=== PATIENT | male | born 2005 | race Caucasian/White ===

== ENCOUNTER 2024-09-18 15:30 | Emergency (ER) | payer BC, SELFPAY ==
[2024-09-18 15:31] VITALS: BP 130/80
--- NOTE | 2024-09-18 15:51 | ED.GENMED ---
History of Present Illness
General
Chief Complaint: Crisis Evaluation
Source: patient and family
Exam Limitations: none
Time Seen by Provider: 09/18/24 15:37
Nursing documentation reviewed up to this point in time: agreed with
History of Present Illness
History of Present Illness:
19-year-old male history of depression anxiety on Lexapro presents for evaluation by crisis 2 nights ago he felt very anxious, thought about cutting himself, no alcohol no drug ingestion no overdose, went to work the next day told his boss that he
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
Past History
Past History
ED Past Medical History: Psychiatric
Social History
Tobacco: Non-smoker
Alcohol: Occasional
Drug: None
Personal: Single
Living: with family
Employment: Employed
Phy Exam
Physical Exam
Physical Exam:
Physical Exam
General: no apparent distress, not acutely ill
Neck: No jaundice
Heart: s1/s2 regular rate and rhythm, no murmur. equal radial pulses.
Lungs: no acute respiratory distress. clear bilaterally
Neuro: alert and oriented. no focal neurological deficits
Skin: no rash
Psychiatric: well kept. interactive and cooperativeNo SI no HI no hallucinations clear thought process
Extremities: no edema.
Course
Orders/Labs/Results
Orders:
Orders
09/18/24 15:35
1:1 Observation - Suicide/ Violent Behavior As Directed
Crisis Consult Urgent
Reason for Consult: SI
Vital Signs
Initial and Last Documented VS:
Initial Vital Signs
Temp Pulse Resp BP Pulse Ox
98.1 F 81 18 130/80 98
09/18/24 15:31 09/18/24 15:31 09/18/24 15:31 09/18/24 15:31 09/18/24 15:31
Last Documented Vital Signs
Temp Pulse Resp BP Pulse Ox
98.1 F 81 18 130/80 98
09/18/24 15:31 09/18/24 15:31 09/18/24 15:31 09/18/24 15:31 09/18/24 15:31
MDM/Problems Addressed
Differential Diagnosis Includes:
anxiety depressin mental health
MDM/Problems Addressed:
mental health
Chronic conditions affecting care: Psychiatric illness
Acute Exacerbation and/or Progression of Chronic Illness: Psychiatric illness
*Pulse Oximetry
Patient hypoxic: no
*Critical Care Note
Total Time (30-74mins, 75-104mins- exclusive of procedures): Not Applicable
Update Note
Update Note:
dw crisis
outpt f/u
ED Attending Note
-
Portions of this chart may have been created with voice recognition software.� Occasional wrong word or��sound alike� substitutions may have occurred due to the inherent limitations of voice recognition software.
Discharge Plan
Departure
Patient Disposition: Home (Routine Discharge)
Date of Disposition: 09/18/24
Time of Disposition: 16:14
Patient with high blood pressure during this ER visit?: No
Condition: Good
Covid-19: Not Applicable
Discharge Problem:
Anxiety
Instructions: Anxiety, Adult (DC)
Interventions
Interventions:
*Risk Screen - Suicide Last Done: 09/18/24 15:31
*General Assessment Last Done: 09/18/24 15:31
*Neglect/Abuse Screening Last Done: 09/18/24 15:31
Discharge Date and Time
Print Language: BULGARIAN
== END 2024-09-18 16:55 | disposition home or self-care (01) ==
LOC: EMR 15:30
PROVIDERS: EMERGENCY PHYSICIAN Emergency Medicine; FAMILY PHYSICIAN Student in an Organized Health Care Education/Training Program
DX: F41.9 Anxiety disorder, unspecified (principal); F32.A Depression, unspecified
CPT/HCPCS: 99283